=== PATIENT | male | born 1960 | race Caucasian/White ===

== ENCOUNTER 2017-01-31 09:21 | Emergency (ER) | payer OTHER ==
--- NOTE | 2017-01-31 11:21 | DIAGNOSTIC IMAGING REPORT ---
PROCEDURE: XR LUMBAR SPINE 2 OR 3 VIEWS INDICATION: LOWER BACK PAIN TECHNIQUE: Three views of the lumbar spine COMPARISON: None. FINDINGS: Five lumbar-type vertebral bodies are present. Normal vertebral body height without fracture. Normal AP and transverse alignment. Mild degenerate disc height loss L5-S1. No significant endplate or facet joint degeneration. The visible osseous pelvis and bowel gas pattern are normal. IMPRESSION: 1. Intact lumbar spine. 2. Mild degenerative disc height loss.
--- NOTE | 2017-01-31 12:33 | ED NURSING NOTES ---
Clinical Report - Nurses [facility] [address] [place] [address] 01/31/2017 9:22 Patient: JOANN STRICKLAND TRIAGE Triage time 10:38. Acuity: LEVEL 3. Chief Complaint: BACK PAIN and (Intermittant spasms after puttingleaf blower 1 week ago. "Real bad spasm last). Alert. No acute distress. SEPSIS SCREEN: Sepsis Screen: negative. Negative (no infection suspected/documented). PADMA COMA SCORE: [place] Coma Scale: 15- eyes open spontaneously (4); best verbal response- oriented x 4 (5); best motor response- obeys commands (6). --10:48 Donna Cespedes R.N. 10:38 01/31/17. BP: 130/80. HR: 82. RR: 20. O2 saturation: 99%. Temp: 98.3 F. Pain level now: 05/03. --10:48 Donna Cespedes R.N. Weight: 40.8 kg stated. Height/Length: 71 inches. BMI: 12.6. --10:45 Donna Cespedes R.N. Medications Atorvastatin Calcium Oral 20 mg, daily. --10:43 Donna Cespedes R.N. Lisinopril Oral 10 mg, daily. --10:44 Donna Cespedes R.N. Medication/allergy information source: the patient. --10:48 Donna Cespedes R.N. Allergies PCN. --13:33 Donna Cespedes R.N. History Arrived by private vehicle. Primary physician (or hosp). Historian not patient. The patient has had new onset of constant numbness of the right leg and foot and left leg and foot. He has had similar symptoms previously. He has had tingling of the right foot (moderate) and left foot (moderate). History of recent trauma- (lifting). Occurred at home. 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 PAST MEDICAL HX: Tetanus status: unknown. SURGERY HX: Abdominal hernia repair. ( lens in eyes, lap band). SOCIAL HX: Never smoker. Occasional alcohol use. No drug use. FALL RISK ASSESSMENT: Fall risk assessment completed. No fall risk identified. NUTRITIONAL RISK ASSESSMENT: The nutritional risk assessment revealed no deficiencies. FUNCTIONAL ASSESSMENT: Functional assessment: no impairments noted. LEARNING NEEDS ASSESSMENT: The learning needs assessment revealed no barriers. SKIN INTEGRITY ASSESSMENT: Skin integrity risk assessment completed. No skin integrity risk identified. --10:48 Donna Cespedes R.N. PROBLEMS: Hypertension. Lisinopril 10mg day . Atorvastin 20mg day . --10:44 Donna Cespedes R.N. Interventions ID band on patient. To room. --10:48 Donna Cespedes R.N. PHYSICAL ASSESSMENT Ambulatory to room. Patient gowned. GENERAL / NEURO / PSYCH: Alert. Oriented X 4. Appears in pain and anxious. He has had new onset of constant numbness of the right foot and left foot with tingling. RESPIRATORY: Respirations not labored. CVS: Capillary refill less than 2 seconds. GI / : Abdomen nontender. EXTREMITIES: Limited ROM present. BACK: Limited ROM of the back. --10:49 Donna Cespedes R.N. NURSING PROGRESS NOTES Cold pack applied. Patient gowned. Head of bed elevated. Two patient identifiers checked. Call light placed in reach. Side rails up x 2. Bed placed in lowest position. Brakes of bed on. Patient ready for evaluation. --10:49 Donna Cespedes R.N. 11:22 01/31/2017 Toradol (Ketorolac Tromethamine) IM 60 mg given. Given in the right deltoid. Allergies verified and confirmed 5 rights. --11:22 Donna Cespedes R.N. 11:22 01/31/2017 Percocet (Oxycodone-Acetaminophen) PO 5/325 mg Tablets 2 tab given. Allergies verified, confirmed 5 rights and sedative warning given to the patient. --11:22 Donna Cespedes R.N. 11:42 01/31/2017 Percocet PO Response: pain is improving. Symptoms have improved the patient feels better. --11:42 Donna Cespedes R.N. DISPOSITION / DISCHARGE Condition at departure: improved. No learning barriers present. Discharge instructions provided and reviewed with the patient and spouse. Reviewed medication(s) side effects, precautions, dosing and course information. Prescription(s) given to the patient. Patient verbalized understanding. Written instructions provided in Spanish. The patient was discharged home and accompanied by spouse. He left the Emergency Department ambulatory and via private vehicle. Spouse driving. Medication list reviewed and validated. --13:00 Donna Cespedes R.N. 12:59 01/31/17. BP: 138/89. HR: 88. RR: 18. O2 saturation: 98%. Temp: deferred. Pain level now: 12/04. 11:39 01/31/17. BP: 140/70. HR: 89. RR: 18. O2 saturation: 97% on room air. 10:38 01/31/17. BP: 130/80. HR: 82. RR: 20. O2 saturation: 99%. Temp: 98.3 F. Pain level now: 05/03. --13:00 Donna Cespedes R.N. Departure time: 1300. --13:00 Donna Cespedes R.N. Locked/Released at 01/31/2017 13:34 by Donna Cespedes R.N.
--- NOTE | 2017-01-31 12:33 | ED ORDER SUMMARY ---
..... Patient: JOANN STRICKLAND OrderSheet [facility] VisitID: [id number] [address] [place] [address] 56y, M Registration Date/Time: 01/31/2017 ORDER SHEET Weight: 40.8 kg (stated) Allergies: PCN GENERAL ORDERS: Lumbar Spine 2 or 3V Urgent (10:59 01/31/2017 Sal Lima) (Ack 11:03 Jam) (11:18 Gavino) MEDICATION ORDERS: Toradol IM 60 mg (NOW) (10:59 01/31/2017 Sal Lima) (Ack 11:11 SRoberts R.N.) (11:22 SRoberts R.N.) Percocet PO 10/650 mg (HIGH ALERT MEDICATION, NOW) (10:59 01/31/2017 Sal Lima) (Ack 11:11 SRoberts R.N.) (11:22 SRoberts R.N.) IV FLUIDS: ORDER SHEET NOTES: [Electronically signed by Donna Cespedes R.N. (13:34 01/31/2017)] [Electronically signed by Barrie Leong Dr. (04:38 02/03/2017)] [Electronically locked/signed by Donna Cespedes R.N. (13:34 01/31/2017)]
--- NOTE | 2017-01-31 12:33 | ED ORDER SUMMARY ---
..... Patient: JOANN STRICKLAND OrderSheet [facility] VisitID: [id number] [address] [place] [address] 56y, M Registration Date/Time: 01/31/2017 ORDER SHEET Weight: 40.8 kg (stated) Allergies: PCN GENERAL ORDERS: Lumbar Spine 2 or 3V Urgent (10:59 01/31/2017 Sal Lima) (Ack 11:03 Jam) (11:18 Gavino) MEDICATION ORDERS: Toradol IM 60 mg (NOW) (10:59 01/31/2017 Sal Lima) (Ack 11:11 SRoberts R.N.) (11:22 SRoberts R.N.) Percocet PO 10/650 mg (HIGH ALERT MEDICATION, NOW) (10:59 01/31/2017 Sal Lima) (Ack 11:11 SRoberts R.N.) (11:22 SRoberts R.N.) IV FLUIDS: ORDER SHEET NOTES: [Electronically signed by Donna Cespedes R.N. (13:34 01/31/2017)] [Electronically signed by Barrie Leong Dr. (04:38 02/03/2017)] [Electronically locked/signed by Donna Cespedes R.N. (13:34 01/31/2017)]
--- NOTE | 2017-01-31 12:33 | ED CLINICAL REPORT ---
Clinical Report - Physicians/Mid Levels [facility] [address] [place] [address] 01/31/2017 9:22 Patient: OJANN STRICKLAND Arrived- By private vehicle. Historian- patient. HISTORY OF PRESENT ILLNESS Chief Complaint: BACK PAIN. Onset- about a week ago; possibly injured last week while carrying a blower. reports he got a little better afterwards but had bad pain today. and it is still present. It was abrupt in onset and has been constant but is not gone now. It is described as being moderate in degree. The quality is noted to be sharp and aching. No radiation. No bladder dysfunction, bowel dysfunction, sensory loss or motor loss. Additional history - no fever. No saddle anesthesia. No incontinence. No urinary retention. No history of IV drug use. Patient reports a injury to the head, neck, chest, abdomen, pelvis or other extremities. Patient notes the possibility of an injury. Similar symptoms previously: None. Recent medical care: Not recently seen/assessed. REVIEW OF SYSTEMS No skin rash. All systems otherwise negative, except as recorded above. PAST HISTORY See nurses notes. SOCIAL HISTORY Never smoker. No alcohol use or drug use. No recent travel. Is a local resident. ADDITIONAL NOTES The nursing notes have been reviewed. PHYSICAL EXAM Vital Signs: 01/31/2017 10:38 BP: 130/80. HR: 82. RR: 20. O2 saturation: 99%. Temp: 98.3 F. Pain level now: 7/10. Blood pressure normal. Oxygen saturation normal. Appearance: Alert. No acute distress. HEENT: Normal external inspection. Eyes: Pupils equal, round and reactive to light. ENT: Ears normal. Pharynx normal. Neck: Normal inspection. Neck nontender. Painless ROM. CVS: Normal heart rate and rhythm. Heart sounds normal. Pulses normal. Respiratory: No respiratory distress. Breath sounds normal. Chest nontender. Abdomen: Normal inspection. Soft and nontender. Bowel sounds normal. No mass. Back: Moderate soft tissue tenderness in the left mid lumbar area. Moderate muscle spasm present in the left mid lumbar area. No vertebral point tenderness. Skin: Skin warm and dry. Normal skin color. No rash. Normal skin turgor. Extremities: Extremities exhibit normal ROM. Extremities nontender. Neuro: Oriented X 3. Mood/affect normal. No motor deficit. LABS, X-RAYS, AND EKG LS-Spine X-rays: (PROCEDURE: XR LUMBAR SPINE 2 OR 3 VIEWS INDICATION: LOWER BACK PAIN TECHNIQUE: Three views of the lumbar spine COMPARISON: None. FINDINGS: Five lumbar-type vertebral bodies are present. Normal vertebral body height without fracture. Normal AP and transverse alignment. Mild degenerate disc height loss L5-S1. No significant endplate or facet joint degeneration. The visible osseous pelvis and bowel gas pattern are normal. IMPRESSION: 1. Intact lumbar spine. 2. Mild degenerative disc height loss.). PROGRESS AND PROCEDURES Course of Care: The patient is a pleasant 56 yo male with no pertinate past medical history presenting for evaluation of back pain. Based on the patient's examination and history, patient has no red flags requiring imaging at this time except for age. XR of the back ordered. The patient will be managed conservatively at this time with nonsteroidal anti-inflammatory medications. Pain meds offered. Patient was agreeable to the treatment and plan. Pain medication as provided. Patient reports slight improvement with the discomfort. Patient continues to be neurovascularly intact. Had long discussion with patient in regards to back pain. Recommended patient follow up with his primary care doctor for further evaluation and management of the back pain. I discussed the patient workup, diagnosis, home care, follow-up, and return precautions. All questions answered. The patient expressed understanding of these instructions and was agreeable to them. Do not feel patient has cauda equina syndrome, conus medullaris syndrome, or paraspinal infection. Did not feel this is atypical presentation for aortic dissection or appendicitis. Patient is nontoxic and in no acute distress. Did not feel patient is being admitted to the hospital or require further emergency department workup/evaluation. CLINICAL IMPRESSION 01/31/2017 10:38 BP: 130/80. HR: 82. RR: 20. O2 saturation: 99%. Temp: 98.3 F. Pain level now: 7/10. Blood pressure normal. Oxygen saturation normal. Acute nontraumatic lumbar back pain. (left). INSTRUCTIONS Warnings: GENERAL WARNINGS: Return or contact your physician immediately if your condition worsens or changes unexpectedly, if not improving as expected, or if other problems arise. SPECIFICALLY, return if you develop weakness, numbness, tingling, pain or incontinence. Your Current Medications: CONTINUE TAKING THE FOLLOWING MEDICATIONS: Atorvastatin Calcium Oral : 20 mg daily. Lisinopril Oral : 10 mg daily. Prescription Medications: Motrin 600 mg tablets: take 1 tablet orally every 6 hours as needed for pain, stiffness or swelling. Dispense thirty (30). No refill. Substitution is permissible. (take with food) Percocet 5 mg/325 mg: take 1-2 tablets orally every 6 hours as needed for pain. Dispense fifteen (15). No refill. Substitution is permissible. Follow-up: Return to the emergency department as needed. Follow up with your doctor in three days. Reason for referral: recheck today's concerns. Summary of care provided to patient via paper. Screening today revealed the patient's blood pressure to be in the normal range. The patient should follow up with a primary care provider for blood pressure management. Understanding of the discharge instructions verbalized by patient. (Electronically signed by Barrie Leong Dr. 02/03/2017 4:38)
--- NOTE | 2017-01-31 12:33 | ED NURSING NOTES ---
Clinical Report - Nurses [facility] [address] [place] [address] 01/31/2017 9:22 Patient: JOANN STRICKLAND TRIAGE Triage time 10:38. Acuity: LEVEL 3. Chief Complaint: BACK PAIN and (Intermittant spasms after puttingleaf blower 1 week ago. "Real bad spasm last). Alert. No acute distress. SEPSIS SCREEN: Sepsis Screen: negative. Negative (no infection suspected/documented). PADMA COMA SCORE: [place] Coma Scale: 15- eyes open spontaneously (4); best verbal response- oriented x 4 (5); best motor response- obeys commands (6). --10:48 Donna Cespedes R.N. 10:38 01/31/17. BP: 130/80. HR: 82. RR: 20. O2 saturation: 99%. Temp: 98.3 F. Pain level now: 05/03. --10:48 Donna Cespedes R.N. Weight: 40.8 kg stated. Height/Length: 71 inches. BMI: 12.6. --10:45 Donna Cespedes R.N. Medications Atorvastatin Calcium Oral 20 mg, daily. --10:43 Donna Cespedes R.N. Lisinopril Oral 10 mg, daily. --10:44 Donna Cespedes R.N. Medication/allergy information source: the patient. --10:48 Donna Cespedes R.N. Allergies PCN. --13:33 Donna Cespedes R.N. History Arrived by private vehicle. Primary physician ([facility]). Historian not patient. The patient has had new onset of constant numbness of the right leg and foot and left leg and foot. He has had similar symptoms previously. He has had tingling of the right foot (moderate) and left foot (moderate). History of recent trauma- (lifting). Occurred at home. 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 PAST MEDICAL HX: Tetanus status: unknown. SURGERY HX: Abdominal hernia repair. ( lens in eyes, lap band). SOCIAL HX: Never smoker. Occasional alcohol use. No drug use. FALL RISK ASSESSMENT: Fall risk assessment completed. No fall risk identified. NUTRITIONAL RISK ASSESSMENT: The nutritional risk assessment revealed no deficiencies. FUNCTIONAL ASSESSMENT: Functional assessment: no impairments noted. LEARNING NEEDS ASSESSMENT: The learning needs assessment revealed no barriers. SKIN INTEGRITY ASSESSMENT: Skin integrity risk assessment completed. No skin integrity risk identified. --10:48 Donna Cespedes R.N. PROBLEMS: Hypertension. Lisinopril 10mg day . Atorvastin 20mg day . --10:44 Donna Cespedes R.N. Interventions ID band on patient. To room. --10:48 Donna Cespedes R.N. PHYSICAL ASSESSMENT Ambulatory to room. Patient gowned. GENERAL / NEURO / PSYCH: Alert. Oriented X 4. Appears in pain and anxious. He has had new onset of constant numbness of the right foot and left foot with tingling. RESPIRATORY: Respirations not labored. CVS: Capillary refill less than 2 seconds. GI / : Abdomen nontender. EXTREMITIES: Limited ROM present. BACK: Limited ROM of the back. --10:49 Donna Cespedes R.N. NURSING PROGRESS NOTES Cold pack applied. Patient gowned. Head of bed elevated. Two patient identifiers checked. Call light placed in reach. Side rails up x 2. Bed placed in lowest position. Brakes of bed on. Patient ready for evaluation. --10:49 Donna Cespedes R.N. 11:22 01/31/2017 Toradol (Ketorolac Tromethamine) IM 60 mg given. Given in the right deltoid. Allergies verified and confirmed 5 rights. --11:22 Donna Cespedes R.N. 11:22 01/31/2017 Percocet (Oxycodone-Acetaminophen) PO 5/325 mg Tablets 2 tab given. Allergies verified, confirmed 5 rights and sedative warning given to the patient. --11:22 Donna Cespedes R.N. 11:42 01/31/2017 Percocet PO Response: pain is improving. Symptoms have improved the patient feels better. --11:42 Donna Cespedes R.N. DISPOSITION / DISCHARGE Condition at departure: improved. No learning barriers present. Discharge instructions provided and reviewed with the patient and spouse. Reviewed medication(s) side effects, precautions, dosing and course information. Prescription(s) given to the patient. Patient verbalized understanding. Written instructions provided in Maltese. The patient was discharged home and accompanied by spouse. He left the Emergency Department ambulatory and via private vehicle. Spouse driving. Medication list reviewed and validated. --13:00 Donna Cespedes R.N. 12:59 01/31/17. BP: 138/89. HR: 88. RR: 18. O2 saturation: 98%. Temp: deferred. Pain level now: 12/04. 11:39 01/31/17. BP: 140/70. HR: 89. RR: 18. O2 saturation: 97% on room air. 10:38 01/31/17. BP: 130/80. HR: 82. RR: 20. O2 saturation: 99%. Temp: 98.3 F. Pain level now: 05/03. --13:00 Donna Cespedes R.N. Departure time: 1300. --13:00 Donna Cespedes R.N. Locked/Released at 01/31/2017 13:34 by Donna Cespedes R.N.
--- NOTE | 2017-02-03 04:38 | ED MAR SUMMARY ---
..... Medication Administration Record [facility] [address] [place] [address] Patient: JOANN STRICKLAND Visit ID: [id number] 56y, M Weight: 40.8 kg Height/Length: 71 in BMI: 12.6 ALLERGIES: PCN Given 11:01/31/2017 Donna Cespedes R.N. Medication Administered: TORADOL [IM] (KETOROLAC TROMETHAMINE), Dose: 60 mg IM. Medication Ordered: Toradol IM 60 mg (NOW). Given 11:01/31/2017 Donna Cespedes R.N. Medication Administered: PERCOCET [PO] (OXYCODONE-ACETAMINOPHEN), Dose: 2 tab 5/325 mg Tablets PO. Medication Ordered: Percocet PO 10/650 mg (HIGH ALERT MEDICATION, NOW).
--- NOTE | 2017-02-03 04:38 | ED MED RECONCILIATION SUMMARY ---
Patient: JOANN STRICKLAND Medication Reconciliation Report [facility] VisitID: [id number] [address] [place] [address] 56y, M Registration Date/Time: 01/31/2017 Weight: 40.8 kg Height/Length: 71 in. BMI: 12.6 ALLERGIES: PCN The patient's Home Medications are listed below: CONTINUE TAKING THE FOLLOWING MEDICATIONS: Atorvastatin Calcium Oral 20 mg, daily Lisinopril Oral 10 mg, daily The source(s) of the original Home Medication information: patient The following Medications were given to the patient in the Emergency Department: Toradol [IM] IM 60 mg, administered: 01/31/2017 11:22:00 AM Percocet [PO] PO 2 tab, administered: 01/31/2017 11:22:00 AM The following Medications were prescribed to the patient: Motrin 600 mg tablets: take 1 tablet orally every 6 hours as needed for pain, stiffness or swelling. Dispense thirty (30). No refill. Substitution is permissible.(take with food) -- Barrie Leong Dr. Percocet 5 mg/325 mg: take 1-2 tablets orally every 6 hours as needed for pain. Dispense fifteen (15). No refill. Substitution is permissible. -- Barrie Leong Dr.
--- NOTE | 2017-02-03 04:38 | ED MAR SUMMARY ---
..... Medication Administration Record [facility] [address] [place] [address] Patient: JOANN STRICKLAND Visit ID: [id number] 56y, M Weight: 40.8 kg Height/Length: 71 in BMI: 12.6 ALLERGIES: PCN Given 11:01/31/2017 Donna Cespedes R.N. Medication Administered: TORADOL [IM] (KETOROLAC TROMETHAMINE), Dose: 60 mg IM. Medication Ordered: Toradol IM 60 mg (NOW). Given 11:01/31/2017 Donna Cespedes R.N. Medication Administered: PERCOCET [PO] (OXYCODONE-ACETAMINOPHEN), Dose: 2 tab 5/325 mg Tablets PO. Medication Ordered: Percocet PO 10/650 mg (HIGH ALERT MEDICATION, NOW).
--- NOTE | 2017-02-03 04:38 | ED MED RECONCILIATION SUMMARY ---
Patient: JOANN STRICKLAND Medication Reconciliation Report [facility] VisitID: [id number] [address] [place] [address] 56y, M Registration Date/Time: 01/31/2017 Weight: 40.8 kg Height/Length: 71 in. BMI: 12.6 ALLERGIES: PCN The patient's Home Medications are listed below: CONTINUE TAKING THE FOLLOWING MEDICATIONS: Atorvastatin Calcium Oral 20 mg, daily Lisinopril Oral 10 mg, daily The source(s) of the original Home Medication information: patient The following Medications were given to the patient in the Emergency Department: Toradol [IM] IM 60 mg, administered: 01/31/2017 11:22:00 AM Percocet [PO] PO 2 tab, administered: 01/31/2017 11:22:00 AM The following Medications were prescribed to the patient: Motrin 600 mg tablets: take 1 tablet orally every 6 hours as needed for pain, stiffness or swelling. Dispense thirty (30). No refill. Substitution is permissible.(take with food) -- Barrie Leong Dr. Percocet 5 mg/325 mg: take 1-2 tablets orally every 6 hours as needed for pain. Dispense fifteen (15). No refill. Substitution is permissible. -- Barrie Leong Dr.
--- NOTE | 2017-02-03 04:38 | ED DISCHARGE INSTRUCTIONS ---
Patient: JOANN STRICKLAND General Instructions [facility] VisitID: [id number] [place] [address] 56y, M Registration Date/Time: 01/31/2017 01/31/2017 10:38 BP: 130/80. HR: 82. RR: 20. O2 saturation: 99%. Temp: 98.3 F. Pain level now: 10. Blood pressure normal. Oxygen saturation normal. Acute nontraumatic lumbar back pain. (left). INSTRUCTIONS Warnings: GENERAL WARNINGS: Return or contact your physician immediately if your condition worsens or changes unexpectedly, if not improving as expected, or if other problems arise. SPECIFICALLY, return if you develop weakness, numbness, tingling, pain or incontinence. Your Current Medications: CONTINUE TAKING THE FOLLOWING MEDICATIONS: Atorvastatin Calcium Oral : 20 mg daily. Lisinopril Oral : 10 mg daily. Prescription Medications: Motrin 600 mg tablets: take 1 tablet orally every 6 hours as needed for pain, stiffness or swelling. Dispense thirty (30). No refill. Substitution is permissible. (take with food) Percocet 5 mg/325 mg: take 1-2 tablets orally every 6 hours as needed for pain. Dispense fifteen (15). No refill. Substitution is permissible. Follow-up: Return to the emergency department as needed. Follow up with your doctor in three days. Reason for referral: recheck today's concerns. Summary of care provided to patient via paper. Screening today revealed the patient's blood pressure to be in the normal range. The patient should follow up with a primary care provider for blood pressure management. Understanding of the discharge instructions verbalized by patient. ADDITIONAL INFORMATION Back Pain [Acute Or Chronic] Back pain is usually caused by an injury to the muscles or ligaments of the spine. Sometimes the disks that separate each bone in the spine may bulge and cause pain by pressing on a nearby nerve. Back pain may also appear after a sudden twisting/bending force (such as in a car accident), after a simple awkward movement, or lifting something heavy with poor body positioning. In either case, muscle spasm is often present and adds to the pain. Acute back pain usually gets better in one to two weeks. Back pain related to disk disease, arthritis in the spinal joints or spinal stenosis (narrowing of the spinal canal) can become chronic and last for months or years. Unless you had a physical injury (for example, a car accident or fall) X-rays are usually not ordered for the initial evaluation of back pain. If pain continues and does not respond to medical treatment, x-rays and other tests may be performed at a later time. Home Care: You may need to stay in bed the first few days. But, as soon as possible, begin sitting or walking to avoid problems with prolonged bed rest (muscle weakness, worsening back stiffness and pain, blood clots in the legs). When in bed, try to find a position of comfort. A firm mattress is best. Try lying flat on your back with pillows under your knees. You can also try lying on your side with your knees bent up towards your chest and a pillow between your knees. Avoid prolonged sitting. This puts more stress on the lower back than standing or walking. During the first two days after injury, apply an ICE PACK to the painful area for 20 minutes every 2-4 hours. This will reduce swelling and pain. HEAT (hot shower, hot bath or heating pad) works well for muscle spasm. You can start with ice, then switch to heat after two days. Some patients feel best alternating ice and heat treatments. Use the one method that feels the best to you. You may use acetaminophen (Tylenol) or ibuprofen (Motrin, Advil) to control pain, unless another pain medicine was prescribed. [NOTE: If you have chronic liver or kidney disease or ever had a stomach ulcer or GI bleeding, talk with your doctor before using these medicines.] Be aware of safe lifting methods and do not lift anything over 15 pounds until all the pain is gone. Follow Up with your doctor or this facility if your symptoms do not start to improve after one week. Physical therapy may be needed. [NOTE: If X-rays were taken, they will be reviewed by a radiologist. You will be notified of any new findings that may affect your care.] Get Prompt Medical Attention if any of the following occur: Pain becomes worse or spreads to your legs Weakness or numbness in one or both legs Loss of bowel or bladder control Numbness in the groin or genital area Ibuprofen Oral tablet What is this medicine? IBUPROFEN (eye BYOO proe fen) is a non-steroidal anti-inflammatory drug (NSAID). It is used for dental pain, fever, headaches or migraines, osteoarthritis, rheumatoid arthritis, or painful monthly periods. It can also relieve minor aches and pains caused by a cold, flu, or sore throat. How should I use this medicine? Take this medicine by mouth with a glass of water. Follow the directions on the prescription label. Take this medicine with food if your stomach gets upset. Try to not lie down for at least 10 minutes after you take the medicine. Take your medicine at regular intervals. Do not take your medicine more often than directed. A special MedGuide will be given to you by the pharmacist with each prescription and refill. Be sure to read this information carefully each time. Talk to your splicer operator regarding the use of this medicine in children. Special care may be needed. What side effects may I notice from receiving this medicine? Side effects that you should report to your doctor or health neonatal intensive care nurse as soon as possible: allergic reactions like skin rash, itching or hives, swelling of the face, lips, or tongue black or bloody stools, blood in the urine or in vomit breathing problems changes in vision chest pain general ill feeling or flu-like symptoms nausea or vomiting redness, blistering, peeling or loosening of the skin, including inside the mouth slurred speech or weakness on one side of the body stomach pain unexplained weight gain or swelling unusually weak or tired yellowing of eyes or skin Side effects that usually do not require medical attention (report to your doctor or health neonatal intensive care nurse if they continue or are bothersome): constipation or diarrhea dizziness gas or heartburn stomach upset What may interact with this medicine? Do not take this medicine with any of the following medications: cidofovir ketorolac methotrexate pemetrexed This medicine may also interact with the following medications: alcohol aspirin diuretics lithium other drugs for inflammation like prednisone warfarin What if I miss a dose? If you miss a dose, take it as soon as you can. If it is almost time for your next dose, take only that dose. Do not take double or extra doses. Where should I keep my medicine? Keep out of the reach of children. Store at room temperature between 15 and 30 degrees C (59 and 86 degrees F). Keep container tightly closed. Throw away any unused medicine after the expiration date. What should I tell my health care provider before I take this medicine? They need to know if you have any of these conditions: asthma cigarette smoker drink more than 3 alcohol containing drinks a day heart disease or circulation problems such as heart failure or leg edema (fluid retention) high blood pressure kidney disease liver disease stomach bleeding or ulcers an unusual or allergic reaction to ibuprofen, aspirin, other NSAIDS, other medicines, foods, dyes, or preservatives or trying to get breast-feeding What should I watch for while using this medicine? Tell your doctor or healthcare professional if your symptoms do not start to get better or if they get worse. This medicine does not prevent heart attack or stroke. In fact, this medicine may increase the chance of a heart attack or stroke. The chance may increase with longer use of this medicine and in people who have heart disease. If you take aspirin to prevent heart attack or stroke, talk with your doctor or health neonatal intensive care nurse. Do not take other medicines that contain aspirin, ibuprofen, or naproxen with this medicine. Side effects such as stomach upset, nausea, or ulcers may be more likely to occur. Many medicines available without a prescription should not be taken with this medicine. This medicine can cause ulcers and bleeding in the stomach and intestines at any time during treatment. Ulcers and bleeding can happen without warning symptoms and can cause . To reduce your risk, do not smoke cigarettes or drink alcohol while you are taking this medicine. You may get drowsy or dizzy. Do not drive, use machinery, or do anything that needs mental alertness until you know how this medicine affects you. Do not stand or sit up quickly, especially if you are an older patient. This reduces the risk of dizzy or fainting spells. This medicine can cause you to bleed more easily. Try to avoid damage to your teeth and gums when you brush or floss your teeth. Oxycodone Hydrochloride, Acetaminophen Oral tablet What is this medicine? ACETAMINOPHEN; OXYCODONE (a set a GUEVARA alec fen; ox i KOE done) is a pain reliever. It is used to treat mild to moderate pain. How should I use this medicine? Take this medicine by mouth with a full glass of water. Follow the directions on the prescription label. Take your medicine at regular intervals. Do not take your medicine more often than directed. Talk to your splicer operator regarding the use of this medicine in children. Special care may be needed. Patients over 65 years old may have a stronger reaction and need a smaller dose. What side effects may I notice from receiving this medicine? Side effects that you should report to your doctor or health neonatal intensive care nurse as soon as possible: allergic reactions like skin rash, itching or hives, swelling of the face, lips, or tongue breathing difficulties, wheezing confusion light headedness or fainting spells severe stomach pain yellowing of the skin or the whites of the eyes Side effects that usually do not require medical attention (report to your doctor or health neonatal intensive care nurse if they continue or are bothersome): dizziness drowsiness nausea vomiting What may interact with this medicine? alcohol antihistamines barbiturates like amobarbital, butalbital, butabarbital, methohexital, pentobarbital, phenobarbital, thiopental, and secobarbital benztropine drugs for bladder problems like solifenacin, trospium, oxybutynin, tolterodine, hyoscyamine, and methscopolamine drugs for breathing problems like ipratropium and tiotropium drugs for certain stomach or intestine problems like propantheline, homatropine methylbromide, glycopyrrolate, atropine, belladonna, and dicyclomine general anesthetics like etomidate, ketamine, nitrous oxide, propofol, desflurane, enflurane, halothane, isoflurane, and sevoflurane medicines for depression, anxiety, or psychotic disturbances medicines for sleep muscle relaxants naltrexone narcotic medicines (opiates) for pain phenothiazines like perphenazine, thioridazine, chlorpromazine, mesoridazine, fluphenazine, prochlorperazine, promazine, and trifluoperazine scopolamine tramadol trihexyphenidyl What if I miss a dose? If you miss a dose, take it as soon as you can. If it is almost time for your next dose, take only that dose. Do not take double or extra doses. Where should I keep my medicine? Keep out of the reach of children. This medicine can be abused. Keep your medicine in a safe place to protect it from theft. Do not share this medicine with anyone. Selling or giving away this medicine is dangerous and against the law. Store at room temperature between 20 and 25 degrees C (68 and 77 degrees F). Keep container tightly closed. Protect from light. This medicine may cause accidental overdose and if it is taken by other adults, children, or pets. Flush any unused medicine down the toilet to reduce the chance of harm. Do not use the medicine after the expiration date. What should I tell my health care provider before I take this medicine? They need to know if you have any of these conditions: brain tumor Crohn's disease, inflammatory bowel disease, or ulcerative colitis drink more than 3 alcohol containing drinks per day drug abuse or addiction head injury heart or circulation problems kidney disease or problems going to the bathroom liver disease lung disease, asthma, or breathing problems an unusual or allergic reaction to acetaminophen, oxycodone, other opioid analgesics, other medicines, foods, dyes, or preservatives or trying to get breast-feeding What should I watch for while using this medicine? Tell your doctor or health neonatal intensive care nurse if your pain does not go away, if it gets worse, or if you have new or a different type of pain. You may develop tolerance to the medicine. Tolerance means that you will need a higher dose of the medication for pain relief. Tolerance is normal and is expected if you take this medicine for a long time. Do not suddenly stop taking your medicine because you may develop a severe reaction. Your body becomes used to the medicine. This does NOT mean you are addicted. Addiction is a behavior related to getting and using a drug for a non-medical reason. If you have pain, you have a medical reason to take pain medicine. Your doctor will tell you how much medicine to take. If your doctor wants you to stop the medicine, the dose will be slowly lowered over time to avoid any side effects. You may get drowsy or dizzy. Do not drive, use machinery, or do anything that needs mental alertness until you know how this medicine affects you. Do not stand or sit up quickly, especially if you are an older patient. This reduces the risk of dizzy or fainting spells. Alcohol may interfere with the effect of this medicine. Avoid alcoholic drinks. There are different types of narcotic medicines (opiates) for pain. If you take more than one type at the same time, you may have more side effects. Give your health care provider a list of all medicines you use. Your doctor will tell you how much medicine to take. Do not take more medicine than directed. Call emergency for help if you have problems breathing. The medicine will cause constipation. Try to have a bowel movement at least every 2 to 3 days. If you do not have a bowel movement for 3 days, call your doctor or health neonatal intensive care nurse. Do not take Tylenol (acetaminophen) or medicines that have acetaminophen with this medicine. Too much acetaminophen can be very dangerous. Many nonprescription medicines contain acetaminophen. Always read the labels carefully to avoid taking more acetaminophen. You have been given the following additional information: Back Pain (Acute Or Chronic) Ibuprofen Oral tablet Oxycodone Hydrochloride, Acetaminophen Oral tablet (Electronically signed by Barrie Leong Dr. 02/03/2017 4:38)
== END 2017-01-31 13:00 | disposition home or self-care (01) ==
LOC: ED SRH 09:21
DX: M54.5 Low back pain (principal)